=== PATIENT | female | born 1960 | race Two or more races ===

== ENCOUNTER 2024-01-10 15:31 | Outpatient (CLI) | payer OTHER | END 2024-01-10 15:33 | disposition home or self-care (01) | LOC: SONOGRAMA 15:31 | PROVIDERS: ATTEND Pathology Anatomic Pathology & Clinical Pathology | DX: D44.0 Neoplasm of uncertain behavior of thyroid gland (principal); E04.1 Nontoxic single thyroid nodule ==

== ENCOUNTER 2024-08-07 09:34 | Outpatient (CLI) | payer OTHER | END 2024-08-07 09:38 | disposition home or self-care (01) | LOC: SONOGRAMA 09:34 | PROVIDERS: ATTEND Pathology Anatomic Pathology & Clinical Pathology | DX: D44.0 Neoplasm of uncertain behavior of thyroid gland (principal); E04.2 Nontoxic multinodular goiter ==